=== PATIENT | female | born 1955 | race Caucasian/White ===

== ENCOUNTER → 2022-05-17 13:39 | Outpatient (BNVA) | payer MEDICARE, SELFPAY | PROVIDERS: Visit Provider Family Medicine | DX: M79.605 Pain in left leg (principal); M79.671 Pain in right foot; M79.672 Pain in left foot | CPT/HCPCS: 73590; 73630 ==

== ENCOUNTER → 2023-11-03 09:45 | Outpatient (BNVA) | payer MEDICARE, SELFPAY | PROVIDERS: PCP Family Medicine; Visit Provider Family Medicine | DX: E55.9 Vitamin D deficiency, unspecified (principal); R79.89 Other specified abnormal findings of blood chemistry; Z76.89 Persons encountering health services in other specified circumstances; I47.10 Supraventricular tachycardia, unspecified; E78.2 Mixed hyperlipidemia; E03.9 Hypothyroidism, unspecified | CPT/HCPCS: 80053; 80061; 82306; 82607; 83036; 83735; 84439; 84443; 84481; 85025 ==

== ENCOUNTER 2024-08-22 05:00 | Outpatient (RCR) | payer MEDICARE, SELFPAY | END 2024-09-20 23:59 | disposition home or self-care (01) | LOC: GPT 05:00 | PROVIDERS: PCP Family Medicine; Visit Provider Family Medicine | DX: M54.59 Other low back pain (principal); M54.17 Radiculopathy, lumbosacral region | CPT/HCPCS: 97110; 97112; 97161 ==

== ENCOUNTER 2024-09-21 05:00 | Outpatient (RCR) | payer MEDICARE, SELFPAY | END 2024-10-21 23:59 | disposition home or self-care (01) | LOC: GPT 05:00 | PROVIDERS: PCP Family Medicine; Visit Provider Family Medicine | DX: M54.17 Radiculopathy, lumbosacral region (principal) | CPT/HCPCS: 97110; 97112; 97140; 97164 ==

== ENCOUNTER 2024-10-22 06:30 | Outpatient (RCR) | payer MEDICARE, SELFPAY | END 2024-11-21 23:59 | disposition home or self-care (01) | LOC: GPT 06:30 | PROVIDERS: PCP Family Medicine; Visit Provider Family Medicine | DX: M54.17 Radiculopathy, lumbosacral region (principal); M54.59 Other low back pain | CPT/HCPCS: 97110; 97112; 97140; 97164 ==

== ENCOUNTER 2024-11-22 06:30 | Outpatient (RCR) | payer MEDICARE, SELFPAY | END 2024-12-09 12:20 | disposition home or self-care (01) | LOC: GPT 06:30 | PROVIDERS: PCP Family Medicine; Visit Provider Family Medicine | DX: M54.59 Other low back pain (principal); M54.17 Radiculopathy, lumbosacral region | CPT/HCPCS: 97110; 97140 ==

== ENCOUNTER → 2025-01-04 08:00 | Outpatient (BNVA) | payer MEDICARE, SELFPAY | PROVIDERS: PCP Family Medicine; Visit Provider Family Medicine | DX: I47.10 Supraventricular tachycardia, unspecified (principal); E03.9 Hypothyroidism, unspecified; E78.2 Mixed hyperlipidemia; R53.82 Chronic fatigue, unspecified; N94.9 Unspecified condition associated with female genital organs and menstrual cycle | CPT/HCPCS: 80053; 80061; 82672; 84144; 84439; 84443; 85025 ==